=== PATIENT | female | born 1970 | race African-American/Black ===

== ENCOUNTER 2021-08-23 13:14 | Emergency (ER) | payer SELFPAY | END 2021-08-23 17:34 | disposition left against medical advice (07) | LOC: EC 13:14 | DX: Z53.21 Procedure and treatment not carried out due to patient leaving prior to being seen by health care provider (principal) | CPT/HCPCS: 87635; 99499 ==

== ENCOUNTER 2021-08-24 13:47 | Emergency (ER) | payer OTHER ==
[2021-08-24] MEDS ORDERED: ALBUTEROL NEBULIZED 2.5 MG/3 ML INHALATION STA (15:48)
--- NOTE | 2021-08-24 16:16 | XR ---
EXAMINATION TYPE: XR chest 2V DATE OF EXAM: 08/24/2021 COMPARISON: NONE HISTORY: Shortness of breath, Covid positive TECHNIQUE: Frontal and lateral views of the chest are obtained. FINDINGS: There is no focal air space opacity, pleural effusion, or pneumothorax seen. The cardiac silhouette size is within normal limits. The osseous structures are intact. IMPRESSION: No acute cardiopulmonary process.
--- NOTE | 2021-08-24 16:22 | ED ---
URI HPI - General Chief Complaint: Upper Respiratory Infection Stated Complaint: COVID+ Time Seen by Provider: 08/24/21 15:33 Source: patient Mode of arrival: ambulatory Limitations: no limitations - History of Present Illness Initial Comments: Patient is a 50-year-old female who presents for COVID-19 treatment. Patient states she was initially tested here in the emergency department waiting room yesterday however went home due to the long wait time. Patient cannot recall telling her that she was positive. Patient would like antibodies. Patient s tates her symptoms started yesterday. She endorses mild shortness of breath, dry cough, and runny nose. Denies leg pain or swelling. Does have history of asthma. States she has been using her albuterol inhaler however does not have her nebulizer as she is [place] from out of town which has been helping. - Related Data Previous Rx's Medication Instructions Recorded Albuterol Inhaler [Ventolin Hfa 1 puff INHALATION RT-QID #8 gm 08/24/21 Inhaler] Allergies Allergy/AdvReac Type Severity Reaction Status Date / Time bee venom protein (honey bee) Allergy Anaphylaxis Verified 08/24/21 14:34 Review of Systems ROS Statement: Those systems with pertinent positive or pertinent negative responses have been documented in the HPI. ROS Other: All systems not noted in ROS Statement are negative. Past Medical History Past Medical History: Asthma History of Any Multi-Drug Resistant Organisms: None Reported Past Surgical History: Cholecystectomy, Hysterectomy, Orthopedic Surgery Additional Past Surgical History / Comment(s): right hand Past Psychological History: No Psychological Hx Reported Smoking Status: Never smoker Past Alcohol Use History: None Reported Past Drug Use History: None Reported General Exam Limitations: no limitations General appearance: alert, in no apparent distress Head exam: Present: atraumatic, normocephalic, normal inspection Eye exam: Present: normal appearance, PERRL, EOMI. Absent: scleral icterus, conjunctival injection, periorbital swelling ENT exam: Present: normal exam, normal oropharynx, mucous membranes moist Respiratory exam: Present: normal lung sounds bilaterally. Absent: respiratory distress, wheezes, rales, rhonchi, stridor Cardiovascular Exam: Present: regular rate, normal rhythm, normal heart sounds. Absent: systolic murmur, diastolic murmur, rubs, gallop, clicks GI/Abdominal exam: Present: soft, normal bowel sounds. Absent: distended, tenderness, guarding, rebound, rigid Neurological exam: Present: alert, oriented X3, CN II-XII intact Psychiatric exam: Present: normal affect, normal mood Skin exam: Present: warm, dry, intact, normal color. Absent: rash Course Vital Signs 08/24/21 08/24/21 08/24/21 14:29 16:49 16:58 Temperature 98.9 F Pulse Rate 94 64 64 Respiratory 18 Rate Blood Pressure 137/84 O2 Sat by Pulse 98 Oximetry 08/24/21 17:24 Temperature 100 F H Pulse Rate 89 Respiratory 16 Rate Blood Pressure 127/68 O2 Sat by Pulse 97 Oximetry Medical Decision Making - Medical Decision Making This is a 50-year-old female positive for COVID-19 who presents for antibiotic treatment. Thorough history and examination were performed. Patient is well- appearing and in no apparent distress. Pulse ox 98% room air. Lungs are clear to auscultation bilaterally. Because patient has mild shortness of breath and will obtain a chest x-ray and give her breathing treatment. Chest x-ray is unremarkable. Patient given breathing treatment and antibodies. Patient responded well and states she is feeling better. Patient will be discharged with albuterol inhaler. Return parameters discussed. She verbalizes understanding and is agreeable to this plan. Dr. Francis is my attending. Disposition Clinical Impression: COVID-19 Disposition: HOME SELF-CARE Condition: Good Instructions (If sedation given, give patient instructions): COVID-19 (Coronavirus Disease 2019) (ED) Additional Instructions: Please quarantine for 4 more days. Use albuterol inhaler as needed. Return to the emergency department if you experience new, concerning, or worsening symptoms. Prescriptions: Albuterol Inhaler [Ventolin Hfa Inhaler] 1 puff INHALATION RT-QID #8 gm Is patient prescribed a controlled substance at d/c from ED?: No Referrals: None,Stated [Primary Care Provider] - 1-2 days
[2021-08-24] MEDS ORDERED: BEBTELOVIMAB (EUA) 175 MG/2 ML VIAL IV ONE (16:30)
[2021-08-24 17:26] VITALS: BP 127/68; PULSE 89; RESP 16; TEMP 100
== END 2021-08-24 17:26 | disposition home or self-care (01) ==
LOC: EC 13:47
DX: U07.1 COVID-19 (principal); J45.909 Unspecified asthma, uncomplicated; Z91.030 Bee allergy status
CPT/HCPCS: 94640; 71046; 99284; Q0222